=== PATIENT | male | born 1960 | race Caucasian/White ===

== ENCOUNTER 2022-07-01 10:18 | Emergency (ER) | payer OTHER ==
[~2022-07-01] VITALS: Ht 180.3 cm; Wt 99.8 kg
[2022-07-01 10:25] VITALS: BP_SYST 131
[2022-07-01] MEDS ORDERED: LISI20TA PO (10:31)
[2022-07-01] MEDS ORDERED: MELO15TA13 PO (10:32)
[2022-07-01] MEDS ORDERED: AMLO5TAB92 PO (10:32)
[2022-07-01] MEDS ORDERED: TRAM50TA PO (10:32)
[2022-07-01] MEDS ORDERED: GABA300T26 PO (16:45)
[2022-07-01] MEDS ORDERED: HYDR-3917 PO (16:45)
[2022-07-01 18:56] VITALS: BP_SYST 131
== END 2022-07-01 18:56 | disposition home or self-care (01) ==
LOC: SED 10:18
DX: R10.32 Left lower quadrant pain (principal); Z79.899 Other long term (current) drug therapy
CPT/HCPCS: 76376; 99284